=== PATIENT | female | born 1970 | race Caucasian/White ===

== ENCOUNTER → 2018-07-25 | Outpatient (CLI) | payer OTHER ==
--- NOTE | 2018-07-25 08:47 | Diagnostic Imaging Report ---
PROCEDURE: US abdomen complete. TECHNIQUE: Multiple real-time grayscale images were obtained over the abdomen in various projections. INDICATION: Abdominal pain. There are no prior studies available for comparison. FINDINGS: There is no evidence for cholelithiasis or acute cholecystitis and the common bile duct is not dilated. The liver does not appear to be enlarged. The liver is somewhat more echogenic than usually seen and this appearance does suggest fatty metamorphosis. There is no focal mass involving the liver and the biliary tree is not abnormally dilated. Spectral and color flow imaging of the liver shows that the portal vein is patent and that there is normal directional flow within the vein. The spleen and kidneys are within normal limits. The pancreas and proximal aorta are partially obscured by bowel gas, but show no definite abnormality. The inferior vena cava is unremarkable. There is no mass or free fluid collection evident. IMPRESSION: 1. There is no acute abnormality of the abdomen. 2. If clinical concern regarding an acute abnormality of the gallbladder persists and further imaging is desired, then nuclear medicine hepatobiliary scan would be recommended. Dictated by: Dictated on workstation # [id number]
== END ==
LOC: RAD 06:48
DX: K80.20 Calculus of gallbladder without cholecystitis without obstruction (principal)
CPT/HCPCS: 76700